=== PATIENT | male | born 1985 | race Caucasian/White ===

== ENCOUNTER 2016-07-07 01:54 | Emergency (ER) | payer OTHER ==
[~2016-07-07] VITALS: Ht 177.8 cm; Wt 85.0 kg
[2016-07-07] MEDS ORDERED: ONDANSETRON ODT 4 MG TAB ONE (02:36)
[2016-07-07] MEDS ORDERED: ZOFR4TAB3 SL (03:53)
--- NOTE | 2016-07-07 03:54 | PD ---
HPI Chief Complaint: vomiting and diarrhea Time Seen by Provider: 03:49 Travel History International Travel<30 days: No Contact w/Intl Traveler<30days: No History of Present Illness HPI 30-year-old male presents with vomiting and diarrhea since 4:30 this evening. He states that he hasn't had any fever or significant pain is denies other complaints. He comes into the can't keep down liquids. He states he feels like he ate some bad sonic. He denies other sick contacts. Quality is nonbloody. Severity is multiple episodes per patient. He denies specific modifying factors. PFS Past Medical History Medical History: Denies Significant Hx Past Surgical History Surgical History: No Previous Surgery Social History Tobacco Use: No Allergies-Medications (Allergen,Severity, Reaction): Coded Allergies: No Known Allergies (Unverified , 07/07/16) Reported Meds & Prescriptions Reported Meds & Active Scripts Active Zofran Odt (Ondansetron Odt) 4 Mg Tab 4 Mg SL Q6HR PRN Review of Systems Except as stated in HPI: all other systems reviewed are Neg Physical Exam Narrative GENERAL: Well-nourished, well-developed patient. SKIN: Warm and dry. HEAD: Normocephalic and atraumatic. EYES: No injection or drainage. ENT: No nasal drainage noted. NECK: Supple, trachea midline. CARDIOVASCULAR: Regular rate and rhythm RESPIRATORY: No increased effort. No accessory muscle use. GASTROINTESTINAL: Abdomen soft, non-tender, nondistended. NEUROLOGICAL: Awake and alert. Motor and sensory grossly within normal limits. Normal speech. MDM Medical Decision Making Medical Screen Exam Complete: Yes Emergency Medical Condition: Yes Medical Record Reviewed: Yes (past history confirmed) Differential Diagnosis Gastroenteritis, dehydration, colitis.... Narrative Course Will dose with Zofran and if can tolerate liquids discharge home. He is in agreement with this plan given stable vitals and exam and short duration of symptoms No emesis here, tolerating liquids, Patient denies any new complaints and states that they are feeling better. Patient happy with care, all questions answered. Patient knows that follow up is incumbent on them and to return to the emergency room immediately if new or worsening symptoms develop. Patient given strict return precautions, vitals reviewed and are normal, agrees to further workup as an outpatient. Diagnosis Primary Impression: Vomiting and diarrhea Additional Instructions: return as needed, follow with primary, zofran as needed, keep hydrated Med/Other Pt SpecificInfo: Prescription(s) given Scripts Ondansetron Odt (Zofran Odt)4 Mg Tab4 Mg SL Q6HR PRN (Nausea/Vomiting) #10 TAB Prov:Leah Roland MD 07/07/16 Disposition: 01 DISCHARGE HOME Condition: Stable Leah Roland MD Jul 07, 2016 03:54
[2016-07-07 04:00] VITALS: BP 122/67; PULSE 91; RESP 16; TEMP 98.4; O2SAT 96
== END 2016-07-07 04:03 | disposition home or self-care (01) ==
LOC: NED 01:54 → NEPC 04:03
DX: R11.10 Vomiting, unspecified (principal); R19.7 Diarrhea, unspecified
CPT/HCPCS: 99283